=== PATIENT | male | born 1990 | race Caucasian/White ===

== ENCOUNTER 2016-09-06 18:47 | Emergency (ER) | payer OTHER ==
[~2016-09-06] VITALS: Ht 182.9 cm; Wt 91.4 kg
[2016-09-06 18:49] VITALS: Ht 182.9 cm; Wt 91.4 kg
[2016-09-06] MEDS ORDERED: LORAZEPAM 1 MG TAB SL STA (19:07)
[2016-09-06 19:42] LABS: BASO % 0.5 %; BASO ABS # 0.04 K/uL (0-0.2); COMPLETE YES; EOS % 1.1 %; HEMATOCRIT 44.7 % (42-52); IG% 0.1 %; LYMPH % 29.1 %; LYMPH ABS # 2.58 K/uL (1.2-3.4); MEAN CELL VOLUME 86.1 fL (80-100); MEAN CORPUSCULAR HEMOGLOBIN 30.1 pg (25-34); MEAN CORPUSCULAR HGB CONC 34.9 g/dl (32-36); MEAN PLATELET VOLUME 9.9 fL (7.4-10.4); MONO % 8.8 %; NEUT % 60.4 %; PLATELET COUNT 241 K/uL (130-400); RED BLOOD COUNT 5.19 M/uL (4.7-6.1); WHITE BLOOD COUNT 8.88 K/uL (4.8-10.8)
[2016-09-06 20:00] LABS: ALT/SGPT 27 U/L (12-78); AST/SGOT 13 U/L (15-37); BLOOD UREA NITROGEN 17 mg/dl (7-18); BUN/CREATININE RATIO 15.3 (10-20); CARBON DIOXIDE 29 mmol/L (21-32); CHLORIDE 109 mmol/L (98-107); GLUCOSE 81 mg/dl (70-99); POTASSIUM 3.8 mmol/L (3.5-5.1); SODIUM 143 mmol/L (136-145)
[2016-09-06 20:03] LABS: BENZODIAZEPINE, URINE NEG (NEG); COCAINE,URINE NEG (NEG); PHENCYCLIDINE, URINE NEG (NEG)
[2016-09-06 20:03] LABS: ACETAMINOPHEN < 2 ug/ml (10-30); ALKALINE PHOSPHATASE 84 U/L (45-117)
[2016-09-06] MEDS ORDERED: NYSTATIN POWDER 15GM BTL EXT STA (23:29)
[2016-09-06 23:42] VITALS: BP 120/77; PULSE 93; O2SAT 95
--- NOTE | 2016-09-07 01:12 | EMERGENCY ROOM VISIT NOTE ---
History Report prepared by Julio: Callie Mary Under the Supervision of: Dr. Ottoniel Cohen M.D. First contact with patient: 18:58 Chief Complaint: MENTAL HEALTH EVALUATION Stated Complaint: 302 History of Present Illness The patient is a 25 year old male who presents to the Emergency Room for a mental health evaluation. Per the patient and his siblings, he is diagnosed with schizophrenia. The patient has not been taking his medications since August 08 because he "does not like how he feels on them". The patient would not go to his doctor appointment at the beginning of the month and states that he is not going to his appointment that is scheduled for September 11. His siblings state that he has not been taking care of himself by not showering or eating. The patient however states "that is is doing okay and needs to take care of himself". He denies drug use, hearing voices or abdominal pain. The patient was going to the [facility] and refused. His siblings would like him to be 302. He has had very paranoid thinking Source of History: patient, sibling Onset: today Position: other (global) Quality: other (mental health evaluation) Timing: constant Associated Symptoms: No abdominal pain Note: Patient denies drug use or hearing voices. Review of Systems See HPI for pertinent positives & negatives. A total of 10 systems reviewed and were otherwise negative. Past Medical & Surgical Medical Problems: (1) Schizophrenia Old medical records were reviewed. Nurse's notes were reviewed and I agree with. Family History Patient reports no known family medical history. Social History Smoking Status: Current Every Day Smoker Alcohol Use: occasionally Drug Use: none Marital Status: single Housing Status: lives alone Occupation Status: unemployed Current/Historical Medications No Active Prescriptions or Reported Meds Allergies Coded Allergies: No Known Allergies (Unverified , 09/06/16) Physical Exam Vital Signs Date Time Temp Pulse Resp B/P Pulse Ox O2 Delivery O2 Flow Rate FiO2 09/06/16 23:42 93 20 120/77 95 Room Air 09/06/16 22:38 84 14 126/86 98 09/06/16 20:45 98 20 118/80 99 09/06/16 18:49 136 20 152/98 96 Physical Exam General: Disheveled young male who is mildly agitated, alert, oriented X3 but paranoid thinking, breathing comfortably on room air. Normal speech HEENT: Normal cephalic atraumatic. Pupils are equal round and reactive to light. Extraocular movements are intact. Oropharynx is pink with moist mucous membranes. No swelling of the mouth lips or tongue. Neck: Supple with a midline trachea. No meningeal signs or stiffness, no JVD or bruits. No Stridor. Chest: Clear to auscultation bilaterally. No wheezes or rhonchi. No increased work of breathing. Heart: regular rate and rhythm. Abdomen: Soft nontender, nondistended without rebound guarding or rigidity. Extremities: No cyanosis clubbing or edema. No calf tenderness or assymetry Spine/Back. Non tender to palpation. No CVA tenderness : Minimal redness to inguinal crest, no legions seen. Skin: Good turgor without rashes. Neurologic exam: Cranial nerves two through 12 are intact. Motor and sensation are intact and symmetrical throughout. Psych: Denies suicidal or homicidal ideation, has paranoid thinking. Medical Decision & Procedures Laboratory Results 09/06/16 19:30 Red Blood Count 5.19, Mean Corpuscular Volume 86.1, Mean Corpuscular Hemoglobin 30.1, Mean Corpuscular Hemoglobin Concent 34.9, Mean Platelet Volume 9.9, Neutrophils (%) (Auto) 60.4, Lymphocytes (%) (Auto) 29.1, Monocytes (%) (Auto) 8.8, Eosinophils (%) (Auto) 1.1, Basophils (%) (Auto) 0.5, Neutrophils # (Auto) 5.37, Lymphocytes # (Auto) 2.58, Monocytes # (Auto) 0.78, Eosinophils # (Auto) 0.10, Basophils # (Auto) 0.04 09/06/16 19:30 Test 09/06/16 00:00 09/06/16 19:30 Urine Opiates Screen NEG (NEG) Urine Methadone, Qualitative NEG (NEG) Urine Barbiturates NEG (NEG) Urine Phencyclidine (PCP) Level NEG (NEG) Ur Amphetamine/Methamphetamine NEG (NEG) MDMA (Ecstasy) Screen NEG (NEG) Urine Benzodiazepines Screen NEG (NEG) Urine Cocaine Metabolite NEG (NEG) Urine Marijuana (THC) POS (NEG) White Blood Count 8.88 K/uL (4.8-10.8) Red Blood Count 5.19 M/uL (4.7-6.1) Hemoglobin 15.6 g/dL (14.0-18.0) Hematocrit 44.7 % (42-52) Mean Corpuscular Volume 86.1 fL (80-100) Mean Corpuscular Hemoglobin 30.1 pg (25-34) Mean Corpuscular Hemoglobin Concent 34.9 g/dl (32-36) Platelet Count 241 K/uL (130-400) Mean Platelet Volume 9.9 fL (7.4-10.4) Neutrophils (%) (Auto) 60.4 % Lymphocytes (%) (Auto) 29.1 % Monocytes (%) (Auto) 8.8 % Eosinophils (%) (Auto) 1.1 % Basophils (%) (Auto) 0.5 % Neutrophils # (Auto) 5.37 K/uL (1.4-6.5) Lymphocytes # (Auto) 2.58 K/uL (1.2-3.4) Monocytes # (Auto) 0.78 K/uL (0.11-0.59) Eosinophils # (Auto) 0.10 K/uL (0-0.5) Basophils # (Auto) 0.04 K/uL (0-0.2) RDW Standard Deviation 38.1 fL (36.4-46.3) RDW Coefficient of Variation 12.0 % (11.5-14.5) Immature Granulocyte % (Auto) 0.1 % Immature Granulocyte # (Auto) 0.01 K/uL (0.00-0.02) Anion Gap 5.0 mmol/L (3-11) Est Creatinine Clear Calc Drug Dose 112.7 ml/min Estimated GFR () 107.6 Estimated GFR (Non- 92.8 BUN/Creatinine Ratio 15.3 (10-20) Calcium Level 9.0 mg/dl (8.5-10.1) Total Bilirubin 0.3 mg/dl (0.2-1) Direct Bilirubin < 0.1 mg/dl (0-0.2) Aspartate Amino Transf (AST/SGOT) 13 U/L (15-37) Alanine Aminotransferase (ALT/SGPT) 27 U/L (12-78) Alkaline Phosphatase 84 U/L (45-117) Total Protein 7.6 gm/dl (6.4-8.2) Albumin 4.2 gm/dl (3.4-5.0) Lipase 124 U/L (73-393) Salicylates Level < 1.7 mg/dl (2.8-20) Acetaminophen Level < 2 ug/ml (10-30) Ethyl Alcohol mg/dL < 3.0 mg/dl (0-3) Laboratory studies as stated above per my review. Medications Administered Medications (Trade) Dose Ordered Sig/Christophe Route Start Time Stop Time Status Last Admin Dose Admin Lorazepam (Ativan Tab) 1 mg NOW STAT SL 09/06/16 19:07 09/06/16 19:09 DC 09/06/16 19:31 1 MG Nystatin (Mycostatin Powder) 1 appln ONE STAT EXT 09/06/16 23:29 09/06/16 23:30 DC 09/06/16 23:41 1 APPLN ED Course 1899: Past medical records reviewed. The patient was evaluated in room A5, and a complete history and physical examination were performed. 1906: Ativan Tab 1 mg SL. 1936: The patient has calmed down and is sitting in bed. 2103: [facility] is evaluating the patient. 2121: I spoke with [facility] and the patient will be hospitalized. 2246: The patient has been accepted at the [facility] and transport is being arranged. 9: Patient complaining of itching to groin. exam done. Ordered Mycostatin Powder 1 appln EXT. 0032: The patient is being transferred. Medical Decision Differentials include, but are not limited to; schizophrenia, electrolyte or metabolic abnormalities, toxicological process. This patient comes in as described above. He was in room A6. He was brought in with a 302 petition filled out by his brother. He has schizophrenia but has not taken his meds. He's been getting very paranoid and disheveled and has some delusional thinking. The family does not think he is safe at home and feel he needs to come in to the hospital for mental health. He was seen at the [facility] but was sent here for medical clearance. Initially the patient seemed agitated and he was given Ativan 1 mg by mouth and was calm and cooperative after that. Multiple blood testing was obtained. He has nothing to suggest acute toxicologic, infections, metabolic, or endocrine process. He was medically cleared. he was seen by the [facility] mental health worker and I did fill out the 302 petition. At this point, I do not think the patient mentally able to sign in voluntarily. He also did start complaining that he had a groin itch which is normal for a while. I did examine him he may have some mild yeast. he was given some nystatin powder. he remained stable and will be sent to the [facility] for further inpatient treatment and evaluation Impression Primary Impression: Schizophrenia Additional Impression: Paranoid ideation Scribe Attestation The scribe's documentation has been prepared under my direction and personally reviewed by me in its entirety. I confirm that the note above accurately reflects all work, treatment, procedures, and medical decision making performed by me. Departure Information Dispostion Mental Health Acute Care Prescriptions No Active Prescriptions or Reported Meds Referrals No Doctor, Assigned (PCP) Problem Qualifiers
== END 2016-09-07 00:20 ==
LOC: C.EDB 18:48 → C.EDA 09-07 00:20
DX: F20.0 Paranoid schizophrenia (principal); Z91.128 Patient's intentional underdosing of medication regimen for other reason; Z91.19 Patient's noncompliance with other medical treatment and regimen; F17.200 Nicotine dependence, unspecified, uncomplicated